=== PATIENT | male | born 1950 | race Caucasian/White ===

== ENCOUNTER → 2023-05-26 06:24 | Day surgery (SDC) | payer OTHER, SELFPAY | LOC: GI 06:24 | PROVIDERS: ATTENDING PHYSICIAN Surgery; FAMILY PHYSICIAN Student in an Organized Health Care Education/Training Program | DX: Z12.11 Encounter for screening for malignant neoplasm of colon (principal); Z86.010 Personal history of colon polyps; Z80.0 Family history of malignant neoplasm of digestive organs; K57.30 Diverticulosis of large intestine without perforation or abscess without bleeding; D12.5 Benign neoplasm of sigmoid colon; D12.3 Benign neoplasm of transverse colon | CPT/HCPCS: 45385; 88305 ==